=== PATIENT | male | born 1995 | race Hispanic/Latino ===

== ENCOUNTER 2021-06-25 11:49 | Emergency (ER) | payer SELFPAY ==
[2021-06-25 12:01] VITALS: BP 151/79; PULSE 93; RESP 16; TEMP 37.2; O2SAT 99
[2021-06-25] MEDS: cefTRIAXone 1 GM VIAL IM (13:54)
--- NOTE | 2021-06-27 08:55 | ED.GENADULT ---
HPI - General Adult General Chief complaint: Skin/Abscess/Foreign Body Stated complaint: bruise rt side Source: patient Mode of arrival: ambulatory Limitations: no limitations History of Present Illness HPI narrative: Patient is a 26-year-old male who presents to the [facility] via POV for evaluation of a skin problem on right low back that began 5 days ago. He reports the area is pruritic, painful, and black. Tylenol provides minimal to no relief. Touching and pressure increases pain. He is accompanied by a male friend. 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 Related Data Allergies Allergy/AdvReac Type Severity Reaction Status Date / Time No Known Allergies Allergy Verified 06/25/21 12:21 Review of Systems Review of Systems: Denies injury. Pertinent negatives fever, chills, sweats, malaise, poor p.o. intake, change in appetite, headache, LOC, dizziness, streaking, drainage, numbness, tingling, loss of sensation, foreign body sensation, deformity, sob, chest pain, and heart palpitations/murmurs. PMFSH Comments I have reviewed and agree with the patient's past medical, surgical, social, and family hx as documented by the RN. There is no relevant family history pertinent to the presenting complaint. Exam Narrative: GENERAL: Well-appearing, well-nourished, and in no acute distress. HEAD: Normocephalic, atraumatic. No facial swelling appreciated. EYES: PERRLA and EOMI. No evidence of erythema, swelling, or drainage. ENT: Nares clear, no rhinorrhea or epistaxis.Mucous membranes moist and pink. Uvula is midline without erythema and swelling. No evidence of obstruction, petechial rash, cobblestoning, lesions, ulcers, erythema, swelling, exudates, peritonsillar abscess, tenting, or drooling. Breath odor and voice normal. NECK: Supple. No Lymphadenopathy or nuchal rigidity appreciated. CHEST: Bilateral lung weinstein are clear to auscultation. No respiratory distress. No evidence of cough or pleuritic cp upon examination. HEART: Regular rate and rhythm. No murmur, gallop, or rub heard. EXTREMITIES: Normal range of motion. No edema. SKIN: Warm, dry. Cellulitis that is 4 x 4 centimeter in size. There is moderate induration measuring 3 x 3 cm in size surrounding cellulitis. Necrosis is noted to center of cellulitis that is measuring 0.5 x 0.5 cm. No evidence of , abscess, streaking, induration, abrasions/lacerations, petechiae, hematoma, contusion, drainage, numbness, loss of sensation, or bleeding. NEURO: No focal deficits. Alert and oriented x3. Course Course Emergency Course: The patient/guardian displays adequate decision making capability and despite a detailed discussion of alternatives, benefits, risks, and consequences refuses tetanus immunization and higher level of care to ER via EMS. Vital Signs Vital signs: Vital Signs Temperature 99.0 F 06/25/21 12:01 Pulse Rate 93 06/25/21 12:01 Respiratory Rate 16 06/25/21 12:01 Blood Pressure 151/79 H 06/25/21 12:01 Pulse Oximetry 99 06/25/21 12:01 Temperature 99.0 F 06/25/21 12:01 Pulse Rate 93 06/25/21 12:01 Respiratory Rate 16 06/25/21 12:01 Blood Pressure 151/79 H 06/25/21 12:01 Pulse Oximetry 99 06/25/21 12:01 Due to an elevated blood pressure, I had a detailed discussion with the patient and/or guardian regarding the need for follow-up with their primary care provider within the next 3-4 days. Patient verbalized understanding and agreed. Medical Decision Making Differential Diagnosis Differential Diagnosis: MRSA, cellulitis, Lyme disease, contact dermatitis Medical Records Medical records reviewed: Yes I reviewed the external patient's medical records. Vital Signs Vital Signs: Vital Signs Temperature 99.0 F 06/25/21 12:01 Pulse Rate 93 06/25/21 12:01 Respiratory Rate 16 06/25/21 12:01 Blood Pressure 151/79 H 06/25/21 12:01 Pulse Oximetry 99 06/25/21 12:01 Temperature 9
== END 2021-06-25 14:07 | disposition left against medical advice (07) ==
PROVIDERS: Emergency Provider Nurse Practitioner Family
DX: L03.312 Cellulitis of back [any part except buttock and flank] (principal); T63.481A Toxic effect of venom of other arthropod, accidental (unintentional), initial encounter
CPT/HCPCS: 96372; 99203; G0463; J0696